=== PATIENT | female | born 1950 | race Caucasian/White ===

== ENCOUNTER 2023-03-05 05:19 | Day surgery (SDC) | payer MEDICARE ==
[2023-03-01 16:15] LABS: BASOPHILS % (AUTO) 0.7 % (0-1); EOSINOPHILS # (AUTO) 0.2 X10'3 (0-0.9); EOSINOPHILS % (AUTO) 3.7 % (0-6); HEMATOCRIT 39.2 % (35.0-45.0); HEMOGLOBIN 13.2 g/dl (12.0-16.0); LYMPHOCYTES # (AUTO) 1.4 X10'3 (1.1-4.8); LYMPHOCYTES % (AUTO) 22.9 % (21-51); MEAN CORPUSCULAR HEMOGLOBIN 31.7 PG (27.0-31.0); MEAN CORPUSCULAR HGB CONC 33.6 g/dL (33.0-36.5); MEAN CORPUSCULAR VOLUME 94.3 FL (78-98); MEAN PLATELET VOLUME 7.9 FL (7.4-10.4); MONOCYTES # (AUTO) 0.5 X10'3 (0-0.9); MONOCYTES % (AUTO) 8.3 % (2-12); NEUTROPHILS # (AUTO) 3.9 X10'3 (1.8-7.7); NEUTROPHILS % (AUTO) 64.4 % (42-75); PLATELET COUNT 244 X10'3 (140-440); RED BLOOD COUNT 4.15 X10'6 (4.20-5.60); RED CELL DISTRIBUTION WIDTH 13.9 % (11.5-14.5)
[2023-03-01 16:26] LABS: APTT 30 SECONDS (22-32); PROTHROMBIN TIME 10.3 SECONDS (9.0-12.0)
[2023-03-01 16:29] LABS: ALBUMIN 3.9 G/DL (3.4-5.0); ANION GAP 5 (8-16); BLOOD UREA NITROGEN 14 MG/DL (7-18); BUN/CREATININE RATIO 20.3 (10.0-20.0); CALCIUM 9.8 MG/DL (8.5-10.1); CHLORIDE 103 MMOL/L (99-107); CHOL/HDL RATIO 2.8 (0.00-4.99); CHOLESTEROL 205 MG/DL (0-200); CREATININE 0.69 MG/DL (0.40-0.90); GLUCOSE 107 MG/DL (70-104); HDL CHOLESTEROL 72 MG/DL (35-60); LDL CHOLESTEROL 115 MG/DL (50-100); POTASSIUM 3.8 MMOL/L (3.5-5.1); SODIUM 140 MMOL/L (135-145); TOTAL CARBON DIOXIDE 32.5 MMOL/L (24-32); TRIGLYCERIDES 67 MG/DL (20-135); eGFR 84 ML/MIN
[~2023-03-05] VITALS: Ht 157.5 cm; Wt 68.8 kg
[2023-03-05] VITALS (12 sets, daily range): BP systolic 94–130; BP diastolic 55–101; PULSE 68–101; RESP 13–16; TEMP 98; O2SAT 95–97
[2023-03-05] MEDS ORDERED: HYDR-3973 PO (05:43)
[2023-03-05] MEDS ORDERED: RAMI10CA69 PO (05:43)
[2023-03-05] MEDS ORDERED: PROM25TA14 PO (05:43)
[2023-03-05] MEDS ORDERED: normal saline 1,000 ML IV SCH (05:45)
[2023-03-05] MEDS ORDERED: diphenhydrAMINE 25mg capsule PO PRN (05:45)
[2023-03-05] MEDS ORDERED: LORazepam 0.5 MG tablet PO PRN (05:45)
[2023-03-05] MEDS ORDERED: LIDOcaine 1% (10mg/ml) 2ml vial ONE (06:34)
[2023-03-05] MEDS ORDERED: fentaNYL/PF 50MCG/1 ML 2ML syringe ONE (06:34)
[2023-03-05] MEDS ORDERED: midazolam 1 mg/ML 2ml injection ONE (06:34)
[2023-03-05] MEDS ORDERED: verapamil 2.5 mg/ml inj IV ONE (06:34)
[2023-03-05] MEDS ORDERED: heparin 1,000unit/ml 10ml vial 10 ML ONE (06:35)
[2023-03-05] MEDS ORDERED: iohexol 350MG/ML 100ml bottle IV ONE (06:35)
[2023-03-05] MEDS ORDERED: nitroGLYCERIN 500mcg/5mL D5W 5 ML IV ONE (06:43)
[2023-03-05 08:02] LABS: ISTAT HGB MIX 11.9 g/dl (12.0-16.0); ISTAT Hct MIX 35 %PCV (35-45); ISTAT O2 SATURATION MIX VENOUS 70 % (60-80); ISTAT SOURCE BLNK
[2023-03-05 08:02] LABS: ISTAT HGB MIX 11.2 g/dl (12.0-16.0); ISTAT Hct MIX 33 %PCV (35-45); ISTAT O2 SATURATION MIX VENOUS 90 % (60-80); ISTAT SOURCE BLNK
[2023-03-05] MEDS ORDERED: HYDROcodone/acetaminophen 10/325mg tab PO PRN (08:10)
[2023-03-05] MEDS ORDERED: ondansetron/PF 4mg/2ml inj IV PRN (08:10)
[2023-03-05] MEDS ORDERED: HYDROcodone/acetaminophen 5mg/325mg tablet PO PRN (08:10)
[2023-03-05] MEDS ORDERED: OXAZEpam 15mg capsule PO PRN (08:10)
== END 2023-03-05 12:00 | disposition home or self-care (01) ==
LOC: SSTAY O 05:19
PROVIDERS: ATTEND Internal Medicine Interventional Cardiology
DX: I25.10 Atherosclerotic heart disease of native coronary artery without angina pectoris (principal); I35.0 Nonrheumatic aortic (valve) stenosis; Z79.01 Long term (current) use of anticoagulants; Z88.8 Allergy status to other drugs, medicaments and biological substances; Z79.899 Other long term (current) drug therapy
CPT/HCPCS: 36415; 80048; 80061; 82803; 85014; 85025; 85610; 85730; 93005; 93460; 99152; 99153; A6258; J1644; J2250; J3010; J3490; J7030; Q0163; Q9967; A6402; C1751; C1894